=== PATIENT | female | born 1975 | race American Indian/Alaskan Native ===

== ENCOUNTER 2016-12-28 09:18 | Inpatient (IN) | payer OTHER ==
[2016-12-28] MEDS ORDERED: FIORICET PO ONE (11:02)
--- NOTE | 2016-12-28 11:07 | Emergency Department Report ---
HPI - General Chief Complaint: Dizziness Time Seen by Provider: 12/28/16 10:43 - HPI HPI: Room 5 The patient is a 41-year-old female presenting with a chief complaint of syncope. The patient states this morning she was standing working at the [employer] when she began to feel hot. The patient states she drank some water but it did not improve. Patient was still at the [employer] when she states she felt "overheated" and had a headache. The patient states she attempted to walk to the "cooler" to see if it would help her feel better she began "seeing dark" and had a syncopal episode. The patient awakened on the floor feeling lightheaded. EMS was called and eventually transported the patient to the ED. Asked how she is feeling now the patient replies she feels lightheaded. Patient denied having chest pain, nausea/vomiting or abdominal pain. Patient missed to slight shortness of breath and a headache. Location: [See above] Duration: [See above] Quality: Syncope Severity: Moderate Modifying factors: [see above] Context: [see above] Mode of transportation: [not driving] ED Past Medical Hx - Past Medical History Hx Headaches / Migraines: Yes Hx Asthma: Yes Additional medical history: Anemia (FE) - Surgical History Past Surgical History?: No - Family History Family history: no significant - Social History Smoking Status: Never Smoker Substance Use Type: None (denies illicit drug use), Alcohol (rarely) - Medications Home Medications: Home Medications Medication Instructions Recorded Confirmed Last Taken Type ALBUTEROL Inhaler [Proair] 2 puff IH QID PRN 12/28/16 12/28/16 12/28/16 History Ferrous Sulfate [Iron] 325 mg PO DAILY 12/28/16 12/28/16 12/28/16 History Triamter/Hctz 75-50 mg [Maxzide 1 tab PO QDAY 12/28/16 12/28/16 12/28/16 History 75-50 mg] ED Review of Systems ROS: Stated complaint: SYNCOPE AT WORK Other details as noted in HPI Comment: All other systems reviewed and negative Constitutional: other ("overheated") Eyes: denies: eye pain, eye discharge, vision change ENT: denies: ear pain, throat pain Respiratory: shortness of breath. denies: cough, wheezing Cardiovascular: denies: chest pain, palpitations Endocrine: no symptoms reported Gastrointestinal: denies: abdominal pain, nausea, diarrhea Genitourinary: denies: urgency, dysuria, discharge Musculoskeletal: denies: back pain, joint swelling, arthralgia Skin: denies: rash, lesions Neurological: headache, other (syncope) Psychiatric: denies: anxiety, depression Hematological/Lymphatic: denies: easy bleeding, easy bruising Physical Exam - Physical Exam Vital Signs: Vital Signs 12/28/16 12/28/16 12/28/16 09:35 09:50 10:00 Temperature 97.9 F Pulse Rate 63 62 Respiratory 21 Rate Blood Pressure 169/80 160/79 O2 Sat by Pulse 100 100 100 Oximetry 12/28/16 10:24 Temperature Pulse Rate Respiratory 18 Rate Blood Pressure O2 Sat by Pulse 100 Oximetry Physical Exam: GENERAL: The patient is well-developed well-nourished female lying on stretcher not appearing to be in acute distress. [] HEENT: Normocephalic. Atraumatic. Extraocular motions are intact. Patient has moist mucous membranes. NECK: Supple. Trachea midline CHEST/LUNGS: Clear to auscultation. There is no respiratory distress noted. HEART/CARDIOVASCULAR: Regular. There is no tachycardia. There is no gallop rub or murmur. ABDOMEN: Abdomen is soft, nontender. Patient has normal bowel sounds. There is no abdominal distention. SKIN: There is no rash. There is no edema. There is no diaphoresis. NEURO: The patient is awake, alert, and oriented. The patient is cooperative. The patient has no focal neurologic deficits. The patient has normal speech. Cranial nerves II through XII grossly intact, no drift. Moves all extremities well MUSCULOSKELETAL:There is no evidence of acute injury. ED Course Vital Signs 12/28/16 12/28/16 12/28/16 09:35 09:50 10:00 Temperature 97.9 F Pulse Rate 63 62 Respiratory 21 Rate Blood Pressure 169/80 160/79 O2 Sat by Pulse 100 100 100 Oximetry 12/28/16 10:24 Temperature Pulse Rate Respiratory 18 Rate Blood Pressure O2 Sat by Pulse 100 Oximetry ED Medical Decision Making - Lab Data Result diagrams: 12/28/16 11:47 12/28/16 11:47 Laboratory Tests 12/28/16 12/28/16 12/28/16 11:23 11:23 11:23 WBC RBC Hgb Hct MCV MCH MCHC RDW Plt Count Lymph % (Auto) [place] % (Auto) Eos % (Auto) Baso % (Auto) Lymph # [place] # Eos # Baso # Seg Neutrophils % Seg Neutrophils # PT INR APTT D-Dimer Sodium Potassium Chloride Carbon Dioxide Anion Gap BUN Creatinine Estimated GFR BUN/Creatinine Ratio Glucose Calcium Total Bilirubin AST ALT Alkaline Phosphatase Total Creatine Kinase CK-MB (CK-2) CK-MB (CK-2) Rel Index Troponin T NT-Pro-B Natriuret Pep Total Protein Albumin Albumin/Globulin Ratio Urine Color Straw Urine Turbidity Clear Urine pH 7.0 Ur Specific [place] 1.006 Urine Protein 30 mg/dl Urine Glucose (UA) Neg Urine Ketones Neg Urine Blood Neg Urine Nitrite Neg Urine Bilirubin Neg Urine Urobilinogen < 2.0 Ur Leukocyte Esterase Neg Urine WBC (Auto) 1.0 Urine RBC (Auto) < 1.0 U Epithel Cells (Auto) 1.0 Urine HCG, Qual Negative Urine Opiates Screen Presumptive negative Urine Methadone Screen Presumptive negative Ur Barbiturates Screen Presumptive negative Ur Phencyclidine Scrn Presumptive negative Ur Amphetamines Screen Presumptive negative U Benzodiazepines Scrn Presumptive negative Urine Cocaine Screen Presumptive negative U Marijuana (THC) Screen Presumptive negative Drugs of Abuse Note Disclamer 12/28/16 12/28/16 12/28/16 11:47 11:47 11:47 WBC 6.4 RBC 4.77 Hgb 8.9 L Hct 28.7 L MCV 60 L MCH 19 L MCHC 31 RDW 23.4 H Plt Count 87 L Lymph % (Auto) 11.8 L [place] % (Auto) 6.7 Eos % (Auto) 1.2 Baso % (Auto) 0.8 Lymph # 0.8 L [place] # 0.4 Eos # 0.1 Baso # 0.1 Seg Neutrophils % 79.5 H Seg Neutrophils # 5.1 PT 12.5 INR 0.89 APTT 20.1 L D-Dimer 193.45 Sodium 135 L Potassium 4.8 Chloride 100.4 Carbon Dioxide 20 L Anion Gap 19 BUN 27 H Creatinine 1.7 H Estimated GFR 40 BUN/Creatinine Ratio 16 Glucose 87 Calcium 9.1 Total Bilirubin 0.20 AST 30 ALT 17 Alkaline Phosphatase 125 Total Creatine Kinase 597 H CK-MB (CK-2) 2.8 CK-MB (CK-2) Rel Index 0.4 Troponin T < 0.010 NT-Pro-B Natriuret Pep 669.2 H Total Protein 7.5 Albumin 3.5 L Albumin/Globulin Ratio 0.9 Urine Color Urine Turbidity Urine pH Ur Specific [place] Urine Protein Urine Glucose (UA) Urine Ketones Urine Blood Urine Nitrite Urine Bilirubin Urine Urobilinogen Ur Leukocyte Esterase Urine WBC (Auto) Urine RBC (Auto) U Epithel Cells (Auto) Urine HCG, Qual Urine Opiates Screen Urine Methadone Screen Ur Barbiturates Screen Ur Phencyclidine Scrn Ur Amphetamines Screen U Benzodiazepines Scrn Urine Cocaine Screen U Marijuana (THC) Screen Drugs of Abuse Note - EKG Data -: EKG Interpreted by Me EKG shows normal: sinus rhythm Rate: normal - EKG Data When compared to previous EKG there are: changes noted Interpretation: nonspecific ST-T wave ginette (new T-wave inversions in leads V5, V6 , 2 when compared to previous EKG dated 08/19/2011) - Radiology Data Radiology results: report reviewed (CT Head), image reviewed (CT head, chest x- ray) interpreted by me: Chest x-ray-no focal infiltrates, no pneumothorax CT head (regular radiologist)-no acute intracranial CT abnormality. - Differential Diagnosis syncope, ICH, ACS, PE Critical care attestation.: If time is entered above; I have spent that time in minutes in the direct care of this critically ill patient, excluding procedure time. ED Disposition Clinical Impression: Syncope, T wave inversion in EKG Disposition: -09 OP ADMIT IP TO THIS HOSP Is pt being admited?: Yes Does the pt Need Aspirin: Yes Condition: Fair Instructions: Syncope (ED) Referrals: PRIMARY CARE, [Primary Care Provider] - 3-5 Days Forms: Accompanied Note Time of Disposition: 13:20 (hospitalist paged)
--- NOTE | 2016-12-28 11:44 | Cat Scan Report ---
CT HEAD WITHOUT CONTRAST INDICATION: Syncope. COMPARISON: None similar. FINDINGS: Noncontrast head CT demonstrates normal ventricles and sulci without acute or recent infarct, hemorrhage, mass effect or midline shift. No abnormal extra-axial fluid collections. Mild, benign bilateral basal ganglia calcifications. Posterior fossa structures and basilar cisterns appear within normal limits. Symmetric eye globes. Mild right maxillary sinus mucosal thickening. Clear remainder imaged paranasal sinuses and mastoid air cells. Intact calvarium. Normal overlying scalp soft tissues. Partially empty sella. Mild atherosclerotic ICA calcifications. CONCLUSION: No acute intracranial CT abnormality with few other findings, as described. Thank you for the opportunity to participate in this patient's care.
[2016-12-28 12:11] LABS: Basophils % (Auto) 0.8 % (0.0-1.8); Eosinophils % (Auto) 1.2 % (0.0-4.3); Hematocrit 28.7 % (30.3-42.9); Hemoglobin 8.9 gm/dl (10.1-14.3); Mean Corpuscular HGB Conc 31 % (30-34); Red Blood Count 4.77 M/mm3 (3.65-5.03); White Blood Count 6.4 K/mm3 (4.5-11.0)
[2016-12-28 12:12] LABS: Mean Corpuscular Hemoglobin 19 pg (28-32); Mean Corpuscular Volume 60 fl (79-97); Red Cell Distribution Width 23.4 % (13.2-15.2)
[2016-12-28 12:24] LABS: INR 0.89 (0.87-1.13); Partial Thromboplastin Time 20.1 Sec. (24.2-36.6)
[2016-12-28 12:26] LABS: Urine Drugs of Abuse Note Disclamer
[2016-12-28 12:49] LABS: Bilirubin,Urine NEG (Negative); Blood,Urine NEG (Negative); Ketones,Urine NEG (Negative); Leukocyte Esterase,Urine NEG (Negative); Nitrite,Urine NEG (Negative); RBC,Urine < 1.0 /HPF (0.0-6.0); Urobilinogen,Urine < 2.0 mg/dL (<2.0)
[2016-12-28 13:01] LABS: Platelet Count 87 K/mm3 (140-440)
[2016-12-28 13:17] LABS: Creatine Kinase MB 2.8 ng/mL (0.0-4.0)
[2016-12-28 13:18] LABS: Alanine Aminotransferase 17 units/L (7-56); Albumin 3.5 g/dL (3.9-5); Albumin/Globulin Ratio 0.9 %; Alkaline Phosphatase 125 units/L (35-129); Anion Gap 19 mmol/L; BUN/Creatinine Ratio 16; Blood Urea Nitrogen 27 mg/dL (7-17); Calcium 9.1 mg/dL (8.4-10.2); Carbon Dioxide 20 mmol/L (22-30); Chloride 100.4 mmol/L (98-107); Creatine Kinase 597 units/L (30-135); Glucose 87 mg/dL (65-100); Potassium 4.8 mmol/L (3.6-5.0); Sodium 135 mmol/L (137-145); Total Protein 7.5 g/dL (6.3-8.2)
--- NOTE | 2016-12-28 13:59 | XRay Report ---
AP CHEST: HISTORY: Shortness of breath, syncope AP view of the chest demonstrates a normal mediastinal and cardiac contour with clear lungs and normal bony and soft tissue structures. IMPRESSION: Unremarkable AP chest.
[2016-12-28] MEDS ORDERED: ASPIRIN PO ONE (16:48)
--- NOTE | 2016-12-28 17:14 | History and Physical Report ---
History of Present Illness Date of examination: 12/28/16 Date of admission: 12/28/16 13:22 Chief complaint: CC: Passed out at work this afternoon. 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 No fevet or chills. Past History Past Medical History: anemia, hypertension, other (Asthma) Past Surgical History: No surgical history Social history: no significant social history, lives with family, full code Family history: no significant family history Medications and Allergies Allergies Allergy/AdvReac Type Severity Reaction Status Date / Time No Known Allergies Allergy Verified 12/28/16 09:35 Home Medications Medication Instructions Recorded Confirmed Last Taken Type ALBUTEROL Inhaler [Proair] 2 puff IH QID PRN 12/28/16 12/28/16 12/28/16 History Ferrous Sulfate [Iron] 325 mg PO DAILY 12/28/16 12/28/16 12/28/16 History Metoprolol [Lopressor] 100 mg PO DAILY 12/28/16 12/28/16 12/28/16 History Triamter/Hctz 75-50 mg [Maxzide 1 tab PO QDAY 12/28/16 12/28/16 12/28/16 History 75-50 mg] Review of Systems All systems: negative Constitutional: no weight loss, no weight gain, no fever, no chills, no sweats, no night sweats Ears, nose, mouth and throat: no hoarseness, no sore throat, no swelling in mouth, no swelling in throat Breasts: deferred Cardiovascular: syncope, lightheadedness, no chest pain, no orthopnea, no palpitations, no rapid/irregular heart beat, no edema, no shortness of breath, no dyspnea on exertion, no paroxysmal nocturnal dyspnea Respiratory: no cough, no cough with sputum, no excessive sputum, no hemoptysis , no shortness of breath, no dyspnea on exertion Gastrointestinal: no abdominal pain, no nausea, no vomiting, no diarrhea, no constipation, no change in bowel habits, no hematemesis, no coffee ground emesis Genitourinary Female: no dysmenorrhea, no pelvic pain, no flank pain, no menorrhagia, no dysuria, no urinary frequency, no urgency, no stress incontinence Menstruation: currently menstrual Rectal: no pain Musculoskeletal: no neck stiffness, no neck pain, no shooting arm pain, no arm numbness/tingling, no low back pain, no shooting leg pain, no leg numbness/ tingling, no redness of joints Integumentary: no rash, no pruritis, no redness, no sores, no wounds, no jaundice, no boils, no blisters Neurological: syncope, no head injury, no transient paralysis, no paralysis, no weakness, no parathesias, no numbness, no tingling, no seizures Psychiatric: no anxiety, no memory loss, no change in sleep habits, no sleep disturbances, no insomnia, no hypersomnia, no change in appetite, no change in libido Endocrine: no cold intolerance, no heat intolerance, no polyphagia, no excessive thirst, no polydipsia, no polyuria, no nocturia, no excessive sweating , no flushing, no weight change Hematologic/Lymphatic: no easy bruising, no easy bleeding Allergic/Immunologic: no urticaria, no allergic rhinitis, no wheezing Exam - Constitutional Vitals: Temp Pulse Resp BP Pulse Ox 98.6 F 68 16 136/74 98 12/28/16 16:23 12/28/16 16:23 12/28/16 16:23 12/28/16 16:23 12/28/16 16:23 General appearance: Present: no acute distress, well-nourished - EENT Eyes: Present: PERRL ENT: hearing intact, clear oral mucosa - Neck Neck: Present: supple, normal ROM - Respiratory Respiratory effort: normal Respiratory: bilateral: CTA - Cardiovascular Heart rate: 80 Rhythm: regular Heart Sounds: Present: S1 & S2. Absent: rub, click - Extremities Extremities: no ischemia, pulses intact, pulses symmetrical, No edema Peripheral Pulses: within normal limits - Abdominal General gastrointestinal: Present: soft, non-tender, non-distended, normal bowel sounds Female genitourinary: Present: normal - Integumentary Integumentary: Present: clear, warm, dry - Musculoskeletal Musculoskeletal: gait normal, strength equal bilaterally - Psychiatric Psychiatric: appropriate mood/affect, intact judgment & insight - Neurologic Neurologic: CNII-XII intact, moves all extremities - Allied Health Allied health notes reviewed: nursing, case management Results - Labs CBC & Chem 7: 12/29/16 05:04 12/29/16 05:04 Labs: Laboratory Last Values WBC 6.4 K/mm3 (4.5-11.0) 12/28/16 11:47 RBC 4.77 M/mm3 (3.65-5.03) 12/28/16 11:47 Hgb 8.9 gm/dl (10.1-14.3) L 12/28/16 11:47 Hct 28.7 % (30.3-42.9) L 12/28/16 11:47 MCV 60 fl (79-97) L 12/28/16 11:47 MCH 19 pg (28-32) L 12/28/16 11:47 MCHC 31 % (30-34) 12/28/16 11:47 RDW 23.4 % (13.2-15.2) H 12/28/16 11:47 Plt Count 87 K/mm3 (140-440) L 12/28/16 11:47 Lymph % (Auto) 11.8 % (13.4-35.0) L 12/28/16 11:47 [place] % (Auto) 6.7 % (0.0-7.3) 12/28/16 11:47 Eos % (Auto) 1.2 % (0.0-4.3) 12/28/16 11:47 Baso % (Auto) 0.8 % (0.0-1.8) 12/28/16 11:47 Lymph # 0.8 K/mm3 (1.2-5.4) L 12/28/16 11:47 [place] # 0.4 K/mm3 (0.0-0.8) 12/28/16 11:47 Eos # 0.1 K/mm3 (0.0-0.4) 12/28/16 11:47 Baso # 0.1 K/mm3 (0.0-0.1) 12/28/16 11:47 Seg Neutrophils % 79.5 % (40.0-70.0) H 12/28/16 11:47 Seg Neutrophils # 5.1 K/mm3 (1.8-7.7) 12/28/16 11:47 PT 12.5 Sec. (12.2-14.9) 12/28/16 11:47 INR 0.89 (0.87-1.13) 12/28/16 11:47 APTT 20.1 Sec. (24.2-36.6) L 12/28/16 11:47 D-Dimer 193.45 ng/mlDDU (0-234) 12/28/16 11:47 Sodium 135 mmol/L (137-145) L 12/28/16 11:47 Potassium 4.8 mmol/L (3.6-5.0) 12/28/16 11:47 Chloride 100.4 mmol/L (98-107) 12/28/16 11:47 Carbon Dioxide 20 mmol/L (22-30) L 12/28/16 11:47 Anion Gap 19 mmol/L 12/28/16 11:47 BUN 27 mg/dL (7-17) H 12/28/16 11:47 Creatinine 1.7 mg/dL (0.7-1.2) H 12/28/16 11:47 Estimated GFR 40 ml/min 12/28/16 11:47 BUN/Creatinine Ratio 16 % 12/28/16 11:47 Glucose 87 mg/dL (65-100) 12/28/16 11:47 Calcium 9.1 mg/dL (8.4-10.2) 12/28/16 11:47 Total Bilirubin 0.20 mg/dL (0.1-1.2) 12/28/16 11:47 AST 30 units/L (5-40) 12/28/16 11:47 ALT 17 units/L (7-56) 12/28/16 11:47 Alkaline Phosphatase 125 units/L (35-129) 12/28/16 11:47 Total Creatine Kinase 597 units/L (30-135) H 12/28/16 11:47 CK-MB (CK-2) 2.8 ng/mL (0.0-4.0) 12/28/16 11:47 CK-MB (CK-2) Rel Index 0.4 (0-4) 12/28/16 11:47 Troponin T < 0.010 ng/mL (0.00-0.029) 12/28/16 11:47 NT-Pro-B Natriuret Pep 669.2 pg/mL (0-450) H 12/28/16 11:47 Total Protein 7.5 g/dL (6.3-8.2) 12/28/16 11:47 Albumin 3.5 g/dL (3.9-5) L 12/28/16 11:47 Albumin/Globulin Ratio 0.9 % 12/28/16 11:47 Urine Color Straw (Yellow) 12/28/16 11:23 Urine Turbidity Clear (Clear) 12/28/16 11:23 Urine pH 7.0 (5.0-7.0) 12/28/16 11:23 Ur Specific [place] 1.006 (1.003-1.030) 12/28/16 11:23 Urine Protein 30 mg/dl mg/dL (Negative) 12/28/16 11:23 Urine Glucose (UA) Neg mg/dL (Negative) 12/28/16 11:23 Urine Ketones Neg mg/dL (Negative) 12/28/16 11:23 Urine Blood Neg (Negative) 12/28/16 11:23 Urine Nitrite Neg (Negative) 12/28/16 11:23 Urine Bilirubin Neg (Negative) 12/28/16 11:23 Urine Urobilinogen < 2.0 mg/dL (<2.0) 12/28/16 11:23 Ur Leukocyte Esterase Neg (Negative) 12/28/16 11:23 Urine WBC (Auto) 1.0 /HPF (0.0-6.0) 12/28/16 11:23 Urine RBC (Auto) < 1.0 /HPF (0.0-6.0) 12/28/16 11:23 U Epithel Cells (Auto) 1.0 /HPF (0-13.0) 12/28/16 11:23 Urine HCG, Qual Negative (Negative) 12/28/16 11:23 Urine Opiates Screen Presumptive negative 12/28/16 11:23 Urine Methadone Screen Presumptive negative 12/28/16 11:23 Ur Barbiturates Screen Presumptive negative 12/28/16 11:23 Ur Phencyclidine Scrn Presumptive negative 12/28/16 11:23 Ur Amphetamines Screen Presumptive negative 12/28/16 11:23 U Benzodiazepines Scrn Presumptive negative 12/28/16 11:23 Urine Cocaine Screen Presumptive negative 12/28/16 11:23 U Marijuana (THC) Screen Presumptive negative 12/28/16 11:23 Drugs of Abuse Note Disclamer 12/28/16 11:23 Short CBC 12/28/16 12/29/16 Range/Units 11:47 05:04 WBC 6.4 6.3 (4.5-11.0) K/mm3 Hgb 8.9 L 8.3 L (10.1-14.3) gm/dl Hct 28.7 L 28.6 L (30.3-42.9) % Plt Count 87 L 128 L (140-440) K/mm3 BMP 12/28/16 12/29/16 11:47 05:04 Sodium 135 L 139 Potassium 4.8 4.2 Chloride 100.4 101.2 Carbon Dioxide 20 L 21 L BUN 27 H 28 H Creatinine 1.7 H 1.7 H Glucose 87 91 Calcium 9.1 8.9 Cardiac Enzymes 12/28/16 Range/Units 11:47 Total Creatine Kinase 597 H (30-135) units/L CK-MB (CK-2) 2.8 (0.0-4.0) ng/mL Troponin T < 0.010 (0.00-0.029) ng/mL Liver Function 12/28/16 12/29/16 Range/Units 11:47 05:04 Total Bilirubin 0.20 < 0.20 (0.1-1.2) mg/dL AST 30 20 (5-40) units/L ALT 17 17 (7-56) units/L Alkaline Phosphatase 125 116 (35-129) units/L Albumin 3.5 L 3.6 L (3.9-5) g/dL Urine 12/28/16 Range/Units 11:23 Urine Color Straw (Yellow) Urine pH 7.0 (5.0-7.0) Ur Specific [place] 1.006 (1.003-1.030) Urine Protein 30 mg/dl (Negative) mg/dL Urine Glucose (UA) Neg (Negative) mg/dL - Imaging and Cardiology EKG: report reviewed (NSR 63/minNo acute st t wave changes) Assessment and Plan Advance Directives: Yes (Full code) VTE prophylaxis?: Chemical Plan of care discussed with patient/family: Yes - Patient Problems (1) Syncope and collapse Current Visit: Yes Status: Acute Plan to address problem: Syncope w/u in the form of CDS /Echo/Lexiscan (2) MEAGAN (acute kidney injury) Current Visit: Yes Status: Acute Plan to address problem: IV fluids for now and recheck Bmp. (3) HTN (hypertension) Current Visit: Yes Status: Chronic Qualifiers: Hypertension type: essential hypertension Qualified Code(s): I10 - Essential (primary) hypertension Plan to address problem: Cont antihypertensives (4) Asthma Current Visit: Yes Status: Inactive Qualifiers: Asthma severity: A Asthma persistence: A Asthma complication type: unspecified Plan to address problem: Cont MDI prn (5) Anemia Current Visit: Yes Status: Chronic Qualifiers: Anemia type: A Iron deficiency anemia type: I Vitamin B12 deficiency anemia type: V Folate deficiency anemia type: F Bone marrow failure anemia type: B Hemolytic anemia type: H Other causes of anemia: O Chronic kidney disease stage: C Plan to address problem: Anemia w/u No obvious GI bleed ??Menorrhagia (6) DVT prophylaxis Current Visit: Yes Status: Acute Plan to address problem: On Lovenox
[2016-12-28] MEDS ORDERED: MILK OF MAGNESIA PO PRN (17:18)
[2016-12-28] MEDS ORDERED: PROAIR IH PRN (17:18)
[2016-12-28] MEDS ORDERED: PERCOCET 5/325 PO PRN (17:18)
[2016-12-28] MEDS ORDERED: TYLENOL PO PRN (17:18)
[2016-12-28] MEDS ORDERED: DULCOLAX PR PRN (17:18)
[2016-12-28] MEDS ORDERED: PROVENTIL IH PRN (17:24)
[2016-12-28] MEDS ORDERED: HCTZ PO SCH (17:30)
[2016-12-28] MEDS ORDERED: TRIAMTER PO SCH (17:30)
[2016-12-28] MEDS ORDERED: APRESOLINE IV PRN (17:36)
[2016-12-28] MEDS ORDERED: D5NS 1,000 ML IV SCH (18:00)
[2016-12-28] MEDS: APRESOLINE IV PRN ×2 (18:09→23:05)
[2016-12-28] MEDS: MAXZIDE-25 PO SCH (18:54)
[2016-12-28] MEDS: FEOSOL PO SCH (18:54)
[2016-12-28] MEDS: ZOFRAN IV PRN (23:05)
[2016-12-28] MEDS: MORPHINE IV PRN ×2 (23:06→23:38)
[2016-12-28] MEDS: PEPCID PO SCH (23:06)
[2016-12-29 05:57] LABS: Basophils % (Auto) 0.7 % (0.0-1.8); Eosinophils % (Auto) 2.5 % (0.0-4.3); Mean Corpuscular HGB Conc 29 % (30-34); Red Blood Count 4.69 M/mm3 (3.65-5.03); White Blood Count 6.3 K/mm3 (4.5-11.0)
[2016-12-29 05:58] LABS: Alanine Aminotransferase 17 units/L (7-56); Albumin 3.6 g/dL (3.9-5); Alkaline Phosphatase 116 units/L (35-129); Anion Gap 21 mmol/L; BUN/Creatinine Ratio 16; Bilirubin,Total < 0.20 mg/dL (0.1-1.2); Blood Urea Nitrogen 28 mg/dL (7-17); Calcium 8.9 mg/dL (8.4-10.2); Carbon Dioxide 21 mmol/L (22-30); Chloride 101.2 mmol/L (98-107); Glucose 91 mg/dL (65-100); Potassium 4.2 mmol/L (3.6-5.0); Sodium 139 mmol/L (137-145); Total Protein 7.3 g/dL (6.3-8.2)
[2016-12-29 06:06] LABS: Hematocrit 28.6 % (30.3-42.9); Hemoglobin 8.3 gm/dl (10.1-14.3); Mean Corpuscular Hemoglobin 18 pg (28-32); Mean Corpuscular Volume 61 fl (79-97); Platelet Count 128 K/mm3 (140-440); Red Cell Distribution Width 22.9 % (13.2-15.2)
[2016-12-29] MEDS ORDERED: NACL 0.9% 1000 ML 1,000 ML IV SCH (08:00)
[2016-12-29 08:28] LABS: Creatine Kinase 289 units/L (30-135)
[2016-12-29] MEDS: LOPRESSOR PO SCH (10:56)
[2016-12-29] MEDS: FEOSOL PO SCH (10:56)
[2016-12-29] MEDS: PEPCID PO SCH ×2 (10:56→21:45)
[2016-12-29] MEDS: MAXZIDE-25 PO SCH (10:57)
[2016-12-29 15:01] LABS: Creatine Kinase MB 1.9 ng/mL (0.0-4.0)
[2016-12-29 15:03] LABS: Creatine Kinase 244 units/L (30-135)
--- NOTE | 2016-12-29 16:01 | Progress Note ---
Assessment and Plan - Patient Problems (1) Syncope and collapse Current Visit: Yes Status: Acute Plan to address problem: Syncope w/u in the form of CDS /Echo/Lexiscan CDS Rt 50 to 79 stenosis Lt <50 percent Echo result pending Lexiscan on 12/30 (2) MEAGAN (acute kidney injury) Current Visit: Yes Status: Acute Plan to address problem: IV fluids for now and recheck Bmp. Cr at 1.7 (3) HTN (hypertension) Current Visit: Yes Status: Chronic Qualifiers: Hypertension type: essential hypertension Qualified Code(s): I10 - Essential (primary) hypertension Plan to address problem: Cont antihypertensives (4) Asthma Current Visit: Yes Status: Inactive Qualifiers: Asthma severity: A Asthma persistence: A Asthma complication type: unspecified Plan to address problem: Cont MDI prn (5) Anemia Current Visit: Yes Status: Chronic Qualifiers: Anemia type: A Iron deficiency anemia type: I Vitamin B12 deficiency anemia type: V Folate deficiency anemia type: F Bone marrow failure anemia type: B Hemolytic anemia type: H Other causes of anemia: O Chronic kidney disease stage: C Plan to address problem: Anemia w/u No obvious GI bleed ??Menorrhagia (6) DVT prophylaxis Current Visit: Yes Status: Acute Plan to address problem: On Lovenox Subjective Date of service: 12/29/16 Principal diagnosis: Syncope and Collapse Interval history: Feeling better.Had CDS and Echo today. Objective - Constitutional Vitals: Vital Signs - 12hr 12/29/16 12/29/16 12/29/16 08:40 08:41 10:00 Temperature 98.2 F 98.2 F Pulse Rate 72 71 89 Respiratory 18 18 Rate Blood Pressure 161/84 O2 Sat by Pulse 99 98 Oximetry General appearance: Present: no acute distress, well-nourished - EENT Eyes: PERRL, EOM intact ENT: hearing intact, clear oral mucosa Ears: bilateral: normal - Neck Neck: supple, normal ROM - Respiratory Respiratory effort: normal Respiratory: bilateral: CTA - Breasts Breasts: normal - Cardiovascular Rhythm: regular Heart Sounds: Present: S1 & S2. Absent: gallop, rub Extremities: pulses intact, No edema, normal color, Full ROM - Gastrointestinal General gastrointestinal: Present: soft, non-tender, non-distended, normal bowel sounds - Genitourinary Female genitourinary: normal - Integumentary Integumentary: clear, warm, dry - Musculoskeletal Musculoskeletal: 1, strength equal bilaterally - Neurologic Neurologic: moves all extremities - Psychiatric Psychiatric: memory intact, appropriate mood/affect, intact judgment & insight - Labs CBC & Chem 7: 12/29/16 05:04 12/29/16 05:04 Labs: Abnormal lab results 12/29/16 12/29/16 12/29/16 Range/Units 05:04 05:04 07:45 Hgb 8.3 L (10.1-14.3) gm/dl Hct 28.6 L (30.3-42.9) % MCV 61 L (79-97) fl MCH 18 L (28-32) pg MCHC 29 L (30-34) % RDW 22.9 H (13.2-15.2) % Plt Count 128 L (140-440) K/mm3 [place] % (Auto) 8.0 H (0.0-7.3) % Carbon Dioxide 21 L (22-30) mmol/L BUN 28 H (7-17) mg/dL Creatinine 1.7 H (0.7-1.2) mg/dL Total Creatine Kinase 289 H (30-135) units/L Albumin 3.6 L (3.9-5) g/dL 12/29/16 Range/Units 13:30 Hgb (10.1-14.3) gm/dl Hct (30.3-42.9) % MCV (79-97) fl MCH (28-32) pg MCHC (30-34) % RDW (13.2-15.2) % Plt Count (140-440) K/mm3 [place] % (Auto) (0.0-7.3) % Carbon Dioxide (22-30) mmol/L BUN (7-17) mg/dL Creatinine (0.7-1.2) mg/dL Total Creatine Kinase 244 H (30-135) units/L Albumin (3.9-5) g/dL
[2016-12-29 18:36] LABS: Creatine Kinase MB 1.8 ng/mL (0.0-4.0)
[2016-12-29 18:37] LABS: Creatine Kinase 212 units/L (30-135)
[2016-12-29] MEDS: APRESOLINE IV PRN (21:45)
[2016-12-29] MEDS: ZOFRAN IV PRN (21:45)
[2016-12-29] MEDS: MORPHINE IV PRN (21:48)
[2016-12-29] MEDS ORDERED: LOVENOX SUB-Q SCH (22:00)
[2016-12-30 09:02] LABS: Calcium 6.2 mg/dL (8.4-10.2); Chloride 112.6 mmol/L (98-107); Potassium 3.1 mmol/L (3.6-5.0)
[2016-12-30] MEDS ORDERED: LEXISCAN IV ONE ×2 (09:57→10:02)
[2016-12-30] MEDS ORDERED: APRESOLINE ONE (10:30)
[2016-12-30] MEDS: APRESOLINE IV PRN (10:31)
--- NOTE | 2016-12-30 11:05 | Treadmill Report ---
LEXISCAN STRESS TEST REPORT DATE OF STUDY: 12/30/2016 REASON FOR STUDY: Chest pain. STRESS TEST PROTOCOL: The patient received 0.4 mg of Lexiscan intravenously over 10 seconds. Technetium-99m tetrofosmin was subsequently injected. Baseline EKG, normal sinus rhythm. T-wave abnormality. Consider inferior ischemia. Lexiscan EKG, no significant change from baseline. No chest pain. No arrhythmias. IMPRESSION: Nondiagnostic due to baseline electrocardiogram abnormalities. Nuclear imaging report to follow. [facility]# [id number] MANFRED/NTS
[2016-12-30] MEDS: FEOSOL PO SCH (11:30)
[2016-12-30] MEDS: PEPCID PO SCH (11:30)
[2016-12-30] MEDS: LOPRESSOR PO SCH (11:30)
[2016-12-30] MEDS: MAXZIDE-25 PO SCH (11:30)
[2016-12-30] MEDS ORDERED: K-DUR PO ONE ×2 (11:31→13:40)
[2016-12-30 13:34] VITALS: BP 157/85
--- NOTE | 2016-12-30 14:12 | Discharge Summary ---
Providers - Providers Date of Admission: 12/28/16 13:22 Date of discharge: 12/30/16 Attending physician: XUAN BERNAL MD 12/30/16 08:19 Consult to Physician [CONS] Routine Consulting Provider: KAUR PEDROZA Reason For Exam: syncope, Rt carotid 50-79% stenosis Place consult to:: vascular surgery Notified:: Nirmal MOTA Phone number called:: Was contact made?: Yes If yes, spoke with:: Jacqueline-Office Time called:: 09:11 Primary care physician: [facility] Hospitalization Reason for admission: syncope, Condition: Stable Disposition: DC- TO HOME OR SELFCARE Time spent for discharge: 31 minutes - Discharge Diagnoses (1) Abnormal nuclear cardiac imaging test Status: Acute (2) MEAGAN (acute kidney injury) Status: Acute (3) Syncope and collapse Status: Acute (4) Anemia Status: Chronic Qualifiers: Anemia type: A Iron deficiency anemia type: I Vitamin B12 deficiency anemia type: V Folate deficiency anemia type: F Bone marrow failure anemia type: B Hemolytic anemia type: H Other causes of anemia: O Chronic kidney disease stage: C (5) HTN (hypertension) Status: Chronic Qualifiers: Hypertension type: essential hypertension Qualified Code(s): I10 - Essential (primary) hypertension Core Measure Documentation - Palliative Care Palliative Care/ Comfort Measures: Not Applicable - Core Measures Any of the following diagnoses?: acute MS - Acute MS Discharge Requirements Aspirin at discharge: Yes BRODY/ARB for LVSD if EF <40%: No Reason for no BRODY/ARB: Renal impairment Statin for LDL = or >100 mg/dl on DC: Yes Exam - Physical Exam Narrative exam: Not in cardiopulmonary distress. The patient is obese. Vital signs as documented. Head exam is unremarkable. No scleral icterus . Neck is without jugular venous distension, thyromegaly, or carotid bruits. Lungs are clear to auscultation. Cardiac exam reveals regular rate and Rhythm. First and second heart sounds normal. No murmurs, rubs or gallops. Abdominal exam reveals normal bowel sounds, no masses, no organomegaly and no aortic enlargement. Extremities are nonedematous and both femoral and pedal pulses are normal. [employer]: Alert and oriented 3. No focal weakness. - Constitutional Vitals: Temp Pulse Resp BP Pulse Ox 98.0 F 71 20 157/85 100 12/30/16 13:03 12/30/16 13:03 12/30/16 13:03 12/30/16 13:03 12/30/16 13:03 Plan Activity: no restrictions Weight Bearing Status: Full Weight Bearing Diet: low cholesterol, low salt Follow up with: PRIMARY CARE,MD [Primary Care Provider] - 3-5 Days [facility] [Provider Group] - 7 Days (Patient can see Dr Reich) Forms: Accompanied Note Prescriptions: Simvastatin [Zocor TAB] 40 mg PO QHS #30 tablet ALBUTEROL Inhaler [ProAir HFA Inhaler] 2 puff IH QID PRN #1 can PRN Reason: Shortness Of Breath amLODIPine [Norvasc] 10 mg PO DAILY #30 tab Ferrous Sulfate [Iron] 325 mg PO DAILY #30 tablet hydrALAZINE [Apresoline TAB] 100 mg PO TID #90 tab Metoprolol [Lopressor TAB] 100 mg PO DAILY #30 tablet
[2016-12-30 15:39] LABS: Calcium 8.9 mg/dL (8.4-10.2); Chloride 99.8 mmol/L (98-107); Potassium 3.9 mmol/L (3.6-5.0)
--- NOTE | 2016-12-30 15:51 | Consultation ---
History of Present Illness - Reason for Consult Consult date: 12/30/16 Requesting physician: XUAN BERNAL - History of Present Illness This patient is a 41-year-old -[place] female was admitted via the emergency room on 12/28/2016 due to a syncopal episode. She apparently was at work when she became lightheaded, and subsequently "passed out". She has since been admitted to the hospital, and a workup initiated. A cardiology consult was placed. A CT scan of the head showed no acute intracranial CT abnormalities. The report did suggest mild atherosclerotic calcifications in her internal carotid artery. A carotid duplex was performed which revealed 50- 79% stenosis on the right (based on velocities) with less than 50% stenosis on the left. A vascular surgery consult was requested to further evaluate. The patient denied any numbness or weakness to her extremities during this event. She also denied any visual changes, slurring of her speech, or facial drooping. She denies taking any sort of routine antiplatelet medication prior to this event. Past History Past Medical History: anemia, hypertension, other (Asthma) Past Surgical History: No surgical history Social history: no significant social history, lives with family, full code Family history: no significant family history Medications and Allergies Allergies Allergy/AdvReac Type Severity Reaction Status Date / Time lisinopril Allergy Vomiting Verified 12/30/16 15:37 Home Medications Medication Instructions Recorded Confirmed Last Taken Type ALBUTEROL Inhaler [ProAir HFA 2 puff IH QID PRN #1 can 12/30/16 Unknown Rx Inhaler] Ferrous Sulfate [Iron] 325 mg PO DAILY #30 tablet 12/30/16 Unknown Rx Metoprolol [Lopressor TAB] 100 mg PO DAILY #30 tablet 12/30/16 Unknown Rx Simvastatin [Zocor TAB] 40 mg PO QHS #30 tablet 12/30/16 Unknown Rx amLODIPine [Norvasc] 10 mg PO DAILY #30 tab 12/30/16 Unknown Rx hydrALAZINE [Apresoline TAB] 100 mg PO TID #90 tab 12/30/16 Unknown Rx Active Meds: Active Medications Acetaminophen (Tylenol) 650 mg PO Q4H PRN PRN Reason: Pain MILD(1-3)/Fever >100.5/STOUT Albuterol (Proventil) 2.5 mg IH Q4HRT PRN PRN Reason: Shortness Of Breath Bisacodyl (Dulcolax) 10 mg LA QDAY PRN PRN Reason: Constipation unrelieved by MOM Enoxaparin Sodium (Lovenox) 40 mg SUB-Q QDAY@2200 [facility] Last Admin: 12/29/16 21:45 Dose: 40 mg Famotidine (Pepcid) 20 mg PO BID [facility] Last Admin: 12/30/16 11:30 Dose: 20 mg Ferrous Sulfate (Feosol) 325 mg PO DAILY [facility] Last Admin: 12/30/16 11:30 Dose: 325 mg Hydralazine HCl (Apresoline) 10 mg IV Q3HR PRN PRN Reason: Blood Pressure Last Admin: 12/30/16 10:31 Dose: 10 mg Magnesium Hydroxide (Milk Of Magnesia) 30 ml PO Q4H PRN PRN Reason: Constipation Metoprolol Tartrate (Lopressor) 100 mg PO DAILY [facility] Last Admin: 12/30/16 11:30 Dose: 100 mg Morphine Sulfate (Morphine) 2 mg IV Q4H PRN PRN Reason: Pain, Moderate (4-6) Last Admin: 12/29/16 21:48 Dose: 2 mg Ondansetron HCl (Zofran) 4 mg IV Q8H PRN PRN Reason: N/V unrelieved by Reglan Last Admin: 12/29/16 21:45 Dose: 4 mg Oxycodone/Acetaminophen (Percocet 5/325) 1 tab PO Q6H PRN PRN Reason: Pain, Moderate (4-6) Last Admin: 12/30/16 11:29 Dose: 1 tab Triamterene/HCTZ (Maxzide-25) 2 each PO QAM [facility] Last Admin: 12/30/16 11:30 Dose: 2 each Review of Systems All systems: negative Exam - Constitutional Vitals: Temp Pulse Resp BP Pulse Ox 98.0 F 71 20 157/85 100 12/30/16 13:03 12/30/16 13:03 12/30/16 13:03 12/30/16 13:03 12/30/16 13:03 General appearance: Present: no acute distress, obese - EENT Eyes: Present: EOM intact ENT: hearing intact - Neck Neck: Present: supple - Respiratory Respiratory effort: normal - Extremities Extremities: no ischemia, pulses intact (bilateral radial and dorsalis pedis pulse were intact), No edema, normal temperature - Psychiatric Psychiatric: appropriate mood/affect, intact judgment & insight, cooperative - Neurologic Neurologic: no focal deficits Results - Labs CBC & Chem 7: 12/29/16 05:04 12/30/16 14:38 Labs: Abnormal lab results 12/29/16 12/30/16 12/30/16 Range/Units 17:40 07:55 14:38 Sodium 136 L (137-145) mmol/L Potassium 3.1 L D (3.6-5.0) mmol/L Chloride 112.6 H (98-107) mmol/L Carbon Dioxide 18 L (22-30) mmol/L BUN 19 H 21 H (7-17) mg/dL Creatinine 1.5 H (0.7-1.2) mg/dL Calcium 6.2 L D (8.4-10.2) mg/dL Total Creatine Kinase 212 H (30-135) units/L Assessment and Plan This patient presented following a syncopal episode. She was admitted, and a workup initiated. Cardiology has been consulted, and a stress test was ordered. Apparently her blood pressure medications have been adjusted. During the workup she was noted to have a right internal carotid artery stenosis (50-79% stenosis based on velocities). This appears to be asymptomatic. It does not appear to reach surgical threshold at this point. Recommend adding an antiplatelet medication, could consider adding a statin, and a routine annual carotid duplex with office follow-up to evaluate for progression of her stenosis. This was discussed with the hospitalist. Discharge planning in progress. The patient can follow up in our office as an outpatient. - Patient Problems (1) Asymptomatic carotid artery stenosis Current Visit: Yes Status: Acute Qualifiers: Laterality: L (2) Syncope Current Visit: Yes Status: Acute Qualifiers: Syncope type: S Encounter type: E (3) MEAGAN (acute kidney injury) Current Visit: Yes Status: Acute (4) Anemia Current Visit: Yes Status: Chronic Qualifiers: Anemia type: A Iron deficiency anemia type: I Vitamin B12 deficiency anemia type: V Folate deficiency anemia type: F Bone marrow failure anemia type: B Hemolytic anemia type: H Other causes of anemia: O Chronic kidney disease stage: C (5) HTN (hypertension) Current Visit: Yes Status: Chronic Qualifiers: Hypertension type: essential hypertension Qualified Code(s): I10 - Essential (primary) hypertension (6) Asthma Current Visit: Yes Status: Inactive Qualifiers: Asthma severity: A Asthma persistence: A Asthma complication type: unspecified
--- NOTE | 2016-12-31 06:49 | Treadmill Report ---
THALLIUM REPORT REASON FOR STUDY: Chest pain. IMAGING PROTOCOL: The patient received Tc-99m Tetrofosmin for stress and rest imaging. Imaging for all procedures was completed 30-90 minutes following the initial injection of Technetium 99m Tetrofosmin. SPECT imaging in the 180 degree arc was performed in the right anterior oblique projection. Computerized reconstruction of the images was performed for analysis. NUCLEAR IMAGING RESULTS: Technically limited study due to significant soft tissue attenuation artifact. Normal left ventricular cavity size with no change from stress to rest. Distribution of radionuclide within the left ventricle revealed a small to medium size area of photo-induction involving the inferior wall. The degree of photo-induction is moderate. Rest imaging showed partial improvement in this defect. Gated SPECT imaging revealed normal global LV systolic function with no significant wall motion abnormalities. The calculated left ventricular ejection fraction is 72%. IMPRESSION: Technically suboptimal study. Small to medium size, partially reversible inferior wall defect. Normal global LV systolic function with no significant wall motion abnormalities. EF 72%. These findings suggest prior infarction with mild residual ischemia in the right coronary artery territory. [facility]# [id number] MANFRED/STEVEN SANDRA
== END 2016-12-30 16:10 | disposition home or self-care (01) | DRG 312 ==
LOC: ED 09:18 → 4A 13:22
PROVIDERS: ADMIT Internal Medicine; ATTEND Internal Medicine
DX: R55 Syncope and collapse (principal); N17.9 Acute kidney failure, unspecified; G43.909 Migraine, unspecified, not intractable, without status migrainosus; J45.909 Unspecified asthma, uncomplicated; I10 Essential (primary) hypertension; I65.29 Occlusion and stenosis of unspecified carotid artery; D64.9 Anemia, unspecified; Z88.8 Allergy status to other drugs, medicaments and biological substances
CPT/HCPCS: 36415; 70450; 71010; 78452; 80048; 80053; 80307; 81001; 81025; 82550; 82553; 83880; 84484; 85025; 85379; 85610; 85730; 93017; 93306; 93880; 96374; A9502; J0360; J1650; J2270; J2405; J2785; J7042

== ENCOUNTER 2019-05-19 06:09 | Day surgery (SDC) | payer MEDICAID, OTHER ==
[~2019-05-19 06:09] MED LIST: SODIUM CHLORIDE 0.9% 1000 ML 1,000 ML IV SCH; ceFAZolin/Water 2 GM/20 ML 2 GM/20 ML SYRINGE IV NR
[2019-05-19] MEDS ORDERED: SODIUM CHLORIDE P/F VIAL 10 ML 10 ML ONE (07:12)
[2019-05-19] MEDS ORDERED: rifAMPin 600 MG VIAL ONE (07:12)
[2019-05-19] MEDS ORDERED: HEPARIN 10,000 UNITS/10 ML VIAL ONE (07:12)
[2019-05-19] MEDS ORDERED: SODIUM CHLORIDE 0.9% 500 ML 500 ML ONE (07:12)
[2019-05-19] MEDS ORDERED: BUPIVACAINE/PF (0.5%) 5 MG/1 ML 30 ML VIAL INFILTRATI ONE ×2 (07:13→09:40)
[2019-05-19] MEDS ORDERED: SODIUM CHLORIDE 0.9% 250ML 250 ML ONE (07:13)
[2019-05-19 07:20] LABS: Basophils % (Auto) 0.8 % (0.0-1.8); Eosinophils # (Auto) 0.2 K/mm3 (0.0-0.4); Eosinophils % (Auto) 4.2 % (0.0-4.3); Hematocrit 32.7 % (30.3-42.9); Hemoglobin 10.5 gm/dl (10.1-14.3); Lymphocytes # (Auto) 0.9 K/mm3 (1.2-5.4); Lymphocytes % (Auto) 15.7 % (13.4-35.0); Mean Corpuscular HGB Conc 32 % (30-34); Mean Corpuscular Volume 84 fl (79-97); Monocytes # (Auto) 0.5 K/mm3 (0.0-0.8); Monocytes % (Auto) 8.4 % (0.0-7.3); Red Blood Count 3.92 M/mm3 (3.65-5.03)
[2019-05-19] MEDS ORDERED: ONDANSETRON 4 MG/2 ML INJ IV PRN (07:28)
[2019-05-19 07:31] LABS: Calcium 8.9 mg/dL (8.4-10.2)
--- NOTE | 2019-05-19 07:33 | Anesthesia Day of Surgery ---
Anesthesia Day of Surgery - Day of Surgery Patient Examined: Yes Patient H&P Reviewed: Yes Patient is NPO: Yes Beta Blockers: Yes
--- NOTE | 2019-05-19 07:38 | Anesthesia Consultation ---
Anesthesia Consult and Med Hx - Airway Anesthetic Teeth Evaluation: Good ROM Head & Neck: Adequate Mental/Hyoid Distance: Adequate Mallampati Class: Class III Intubation Access Assessment: Probably Good - Pre-Operative Health Status ASA Pre-Surgery Classification: ASA3 Proposed Anesthetic Plan: General - Pulmonary Hx Smoking: No Hx Asthma: Yes COPD: No Hx Pneumonia: No Hx Sleep Apnea: No - Cardiovascular System Hx Hypertension: Yes (ECHO, Cardiac w/u 2016) Hx Heart Attack/AMI: No (HX CHF) Hx Heart Murmur: Yes Hx Peripheral Vascular Disease: Yes (Carotid artery stenosis) - Central Nervous System CVA: (HX-INTRACEREBRAL HEMORRHAGE OF BRAIN STEMM ??? 2017) Hx Back Pain: Yes (AND NECK PAIN) Hx Psychiatric Problems: No - Endocrine Hx Renal Disease: Yes Hx End Stage Renal Disease: Yes (DIALYSIS-TUE,THUR,SAT) Hx Hypothyroidism: No - Hematic Hx Anemia: Yes Hx Sickle Cell Disease: No - Other Systems Hx Alcohol Use: Yes (RARE MIXED DRINK) Hx Substance Use: No Hx Cancer: No
[2019-05-19] MEDS ORDERED: LIDOCAINE MPF (2%) 20 MG/1 ML VIAL 5 ML ONE (07:40)
[2019-05-19] MEDS ORDERED: propofoL 200 MG/20 ML VIAL IV ONE (07:41)
[2019-05-19 07:53] LABS: Red Cell Distribution Width 20.7 % (13.2-15.2)
[2019-05-19 08:28] LABS: Platelet Count 84 K/mm3 (140-440)
[2019-05-19] MEDS ORDERED: dexAMETHasone 20 MG/5 ML VIAL ONE (09:12)
[2019-05-19] MEDS ORDERED: ePHEDrine SULFATE 50 MG/1 ML INJ ONE (09:30)
[2019-05-19] MEDS ORDERED: HEPARIN 10,000 UNITS/10 ML VIAL IV ONE (09:37)
[2019-05-19] MEDS ORDERED: SODIUM CHLORIDE 0.9% 500 ML IVPB IRRIGATION ONE (09:38)
[2019-05-19] MEDS ORDERED: SODIUM CHLORIDE 0.9% 250 ML IVPB IV ONE (09:39)
[2019-05-19] MEDS ORDERED: SODIUM CHLORIDE 0.9% P/F 10 ML VIAL INFILTRATI ONE (09:39)
[2019-05-19] MEDS ORDERED: rifAMPin 600 MG VIAL IV ONE (09:40)
[2019-05-19] MEDS ORDERED: SODIUM CHLORIDE 0.9% IRR 1,500 ML BOTTLE IR ONE (09:41)
[2019-05-19] MEDS: fentaNYL 100 MCG/2 ML INJ IV PRN ×2 (11:10→11:20)
--- NOTE | 2019-05-19 11:14 | Short Stay Summary ---
Short Stay Documentation Date of service: 05/19/19 Narrative H&P: See H&P - History H&P: obtained from office - Allergies and Medications Current Medications: Allergies lisinopril Allergy (Verified 12/30/16 15:37) Vomiting Home Medications Medication Instructions Recorded Confirmed Last Taken Type Albuterol INH(or & Nicu Only) 2 puff IH QID PRN #1 can 12/30/16 05/19/19 03/20/19 Rx [ProAir HFA Inhaler] Ferrous Sulfate [Iron 325 MG] 325 mg PO DAILY #30 tablet 12/30/16 05/19/19 05/18/19 Rx Simvastatin [Zocor TAB] 40 mg PO QHS #30 tablet 12/30/16 05/19/19 05/18/19 Rx hydrALAZINE [Apresoline TAB] 100 mg PO TID #90 tab 12/30/16 05/19/19 05/19/19 05:30 Rx Docusate Sodium-Senna Tablet 10 gm PO TID 05/15/19 05/19/19 05/18/19 History Metoprolol [Lopressor TAB] 100 mg PO BID 05/15/19 05/19/19 05/19/19 05:30 History NIFEdipine 90 mg PO DAILY 05/15/19 05/15/19 05/19/19 05:30 History Torsemide 100 mg PO DAILY 05/15/19 05/15/19 05/19/19 05:30 History Vitamin D2 1 cap PO DAILY 05/15/19 05/19/19 05/18/19 History cloNIDine 0.2 mg PO TID 05/15/19 05/15/19 05/19/19 05:30 History PANTOPRAZOLE SODIUM (nf) [Protonix 40 mg PO QDAY 05/19/19 05/19/19 05/19/19 05:30 History GRANULES] Sodium Bicarbonate 10 mg PO TID 05/19/19 05/19/19 05/18/19 History Active Medications Fentanyl (Sublimaze) 50 mcg IV Q5MIN PRN PRN Reason: Pain , Severe (7-10) Stop: 05/19/19 20:00 Cefazolin Sodium (Ancef/Sterile Water 2 Gm/20 Ml) 2 gm in 20 mls @ 80 mls/hr IV PREOP NR; Protocol Stop: 05/19/19 23:01 Sodium Chloride (Nacl 0.9% 1000 Ml) 1,000 mls @ 42 mls/hr IV DIRECT SIERRA Last Admin: 05/19/19 06:50 Dose: 42 mls/hr Documented by: Ondansetron HCl (Zofran) 4 mg IV ONCE PRN PRN Reason: Nausea And Vomiting Stop: 05/19/19 16:00 - Brief post op/procedure progress note Date of procedure: 05/19/19 Pre-op diagnosis: End Stage Renal Disease Post-op diagnosis: same Procedure: Creation Of Left Brachial Artery to Left Axillary Vein Arteriovenous Graft with 6 mm Bovine Artegraft Anesthesia: GETDesi Surgeon: VINH KELLOGG Estimated blood loss: minimal Pathology: none Condition: stable - Disposition Condition at discharge: Good Disposition: DC-01 TO HOME OR SELFCARE Short Stay Discharge Plan Activity: other (No heavy lifting with left arm.) Wound: open to air, keep clean and dry, other (Okay to wash the wound with soap and water but do not soak in water.) Follow up with: VINH KELLOGG MD [Staff Physician] - 14 Days Prescriptions: HYDROcodone/APAP 7.5-325 [[place] 7.5/325] 1 each PO Q6HR PRN #40 tablet PRN Reason: Pain
--- NOTE | 2019-05-19 11:17 | Operative Report ---
Operative Report Operative Report: Date of procedure: 05/19/2019 Pre-operative diagnosis: End-Stage Renal Disease Post-operative diagnosis: Same Procedure(s): 1. Creation of Left Brachial Artery to Axillary Vein AV Graft with 6 mm Bovine Graft Surgeon: Hardik Price MD Skate Shop Attendant: None Anesthesia: General Endotracheal Anesthesia EBL: Minimal Counts: Correct Complications: None Condition: Stable Findings: Successful Creation of Left Arm AV Graft Specimen: None Indication: The patient is a 43-year-old female with a history of end-stage renal disease who is on hemodialysis through a right internal jugular permacath. She is in need of long-term dialysis access however her veins are too small for creation of an arteriovenous fistula so she is in need of creation of an arteriovenous graft. She was given the risk, benefits, and alternative procedures and consented to the procedure. Description of Procedure: The patient was brought to the operating room and laid in supine position after general endotracheal anesthesia was achieved the left arm was prepped and draped in normal sterile fashion. A longitudinal incision was made on the medial aspect of the arm just proximal to the antecubital crease and carried down to the brachial artery using sharp dissection. The brachial artery was dissected out circumferentially both proximally and distally and controlled with vessel loops. A second incision was created in longitudinal fashion on the medial aspect of the arm just distal to the axillary crease and carried down to the axillary vein using sharp dissection. Axillary vein was dissected out circumferentially and controlled with a vessel loop. I then used a Marlyn-Wick tunneler to tunnel from the brachial artery incision to the axillary vein incision and then put an 6 mm bovine through the tunnel. I infused with heparinized saline to ensure that it was not twisted or kinked. I put the brachial artery vessel loops on tension controlling the flow and then created an arteriotomy using an 11 blade and Sinclair scissors. I beveled the graft and created an end-to-side anastomosis using 6-0 Prolene running fashion. I clamped the graft just proximal to the anastomosis and then released the vessel loops restoring flow in the brachial artery. I placed quick clot in incision to achieve hemostasis. I cut the proximal end of the graft to the appropriate length and beveled the graft in preparation for a venous anastomosis. I controlled the axillary vein a Satinsky clamp and created a venotomy using an 11 blade and Sinclair scissors. I created an end to side anastomosis using a 6-0 Prolene in running fashion. Prior to completing the anastomosis I flushed the graft to ensure there was no thrombus and then completed the anastamosis. I released all clamps allowing flow into the AV graft which had an excellent thrill. I packed the wound with quick clot to achieve hemostasis. I anesthetized both wounds with 0.5% Marcaine and then closed both wounds in 2 layers using 3-0 Vicryl in running fashion in the deep dermal layer and 4-0 Monocryl in running fashion the subcuticular layer. I dressed both wounds with Dermabond. The patient tolerated the procedure well all sponge needle and instrument counts were correct the patient was taken to recovery in stable condition.
[2019-05-19] MEDS ORDERED: HYDROcodone/ACETAMINOPHEN 7.5-325MG TAB PO PRN (11:40)
[2019-05-19] MEDS ORDERED: HYDROcodone/ACETAMINOPHEN 7.5-325MG TAB ONE (11:45)
[2019-05-19 11:54] VITALS: BP 148/81
--- NOTE | 2019-05-19 14:37 | Post Anesthesia Evaluation ---
- Post Anesthesia Evaluation Patient Participated: Yes Airway Patent: Yes Stable Respiratory Function: Yes Nausea/Vomiting: No Temp > 96.8F: Yes Pain Manageable: Yes Adequeate Hydration: Yes Anesthesia Complications: No
== END 2019-05-19 06:10 | disposition home or self-care (01) ==
LOC: OR 06:09
PROVIDERS: ATTEND Surgery Vascular Surgery
DX: I13.2 Hypertensive heart and chronic kidney disease with heart failure and with stage 5 chronic kidney disease, or end stage renal disease (principal); N18.6 End stage renal disease; I50.9 Heart failure, unspecified; J45.909 Unspecified asthma, uncomplicated; D64.9 Anemia, unspecified; I73.9 Peripheral vascular disease, unspecified; E78.00 Pure hypercholesterolemia, unspecified; K21.9 Gastro-esophageal reflux disease without esophagitis; M19.90 Unspecified osteoarthritis, unspecified site; Z72.89 Other problems related to lifestyle; Z79.899 Other long term (current) drug therapy; Z99.2 Dependence on renal dialysis; Z98.890 Other specified postprocedural states; Z86.2 Personal history of diseases of the blood and blood-forming organs and certain disorders involving the immune mechanism; Z88.8 Allergy status to other drugs, medicaments and biological substances; Z86.73 Personal history of transient ischemic attack (TIA), and cerebral infarction without residual deficits
CPT/HCPCS: 36415; 36830; 80048; 81025; 85025; C1768; J0690; J1100; J1644; J2405; J2704; J3010; J3490; J7030; J7040; J7050

== ENCOUNTER 2021-03-27 14:27 | Outpatient (CLI) | payer MEDICARE ==
--- NOTE | 2021-03-27 17:57 | Mammography Report ---
DIGITAL SCREENING MAMMOGRAM WITH CAD, 03/27/2021 CLINICAL INFORMATION / INDICATION: Routine screening TECHNIQUE: Digital bilateral 2D mammography was obtained in the craniocaudal and mediolateral obliqu e projections. This examination was interpreted with the benefit of Computer-Aided Detection analysis . COMPARISON: None, baseline FINDINGS: Breast Density: The breasts are almost entirely fatty. No dominant mass, suspicious calcifications, or architectural distortion in either breast. Benign-appearing bilateral calcifications are seen. IMPRESSION: No mammographic evidence of malignancy. Follow up recommendation: Routine yearly BI-RADS Category 2: BENIGN. A "normal" or negative report should not discourage follow up or biopsy of a clinically significant f inding. A written summary of these findings will be mailed to the patient. The patient will be entered into a mammography reporting system which will generate a reminder letter for the patient's next appointmen t at the appropriate interval. The [employer] recommends yearly mammograms starting at age 40 and continuing as l bailey as a woman is in good health. Breast MRI is recommended for women with an approximate 20-25% or greater lifetime risk of breast cancer, including women with a strong family history of breast or ova devang cancer or who have been treated for Hodgkin's disease. Signer Name: Robert Cruz MD Signed: 03/27/2021 5:53 PM Workstation Name: [email or web address]
== END 2021-03-27 14:28 | disposition home or self-care (01) ==
LOC: MAMMO 14:27
PROVIDERS: ATTEND Internal Medicine Nephrology
DX: Z12.31 Encounter for screening mammogram for malignant neoplasm of breast (principal); N64.89 Other specified disorders of breast
CPT/HCPCS: 77067

== ENCOUNTER 2021-08-24 13:49 | Emergency (ER) | payer MEDICARE ==
[2021-08-25 09:21] LABS: Hemoglobin 11.5 gm/dl (10.1-14.3); Mean Corpuscular HGB Conc 32 % (30-34); Mean Corpuscular Volume 94 fl (79-97); Platelet Count 106 K/mm3 (140-440); Red Blood Count 3.85 M/mm3 (3.65-5.03); Red Cell Distribution Width 17.7 % (13.2-15.2)
[2021-08-25 09:43] LABS: Albumin 4.4 g/dL (3.9-5); Calcium 10.1 mg/dL (8.4-10.2)
[2021-08-25] MEDS ORDERED: ONDANSETRON 4 MG/2 ML INJ IM ONE (10:07)
[2021-08-25] MEDS ORDERED: CYCLOBENZAPRINE 10 MG TAB PO ONE (10:07)
[2021-08-25] MEDS ORDERED: fentaNYL 100 MCG/2 ML INJ IM ONE (10:07)
--- NOTE | 2021-08-25 10:15 | Emergency Department Report ---
HPI - General Chief Complaint: Pain General Time Seen by Provider: 08/25/21 09:58 - HPI HPI: Room 6 The patient is a 46-year-old female present with a chief complaint of soreness. The patient states for the past 5 days she has had soreness in bilateral upper extremities and her neck in addition to bilateral thighs and low back pain. Patient states she has had this pain in the past has been attributed to arthritis in her neck and back. Patient states she also has longstanding disc issues in her lower back. ED Past Medical Hx - Past Medical History Previous Medical History?: Yes Hx Hypertension: Yes (ECHO, Cardiac w/u 2016) Hx Heart Attack/AMI: No (HX CHF) Hx Congestive Heart Failure: Yes Hx GERD: Yes Hx Renal Disease: Yes Hx Arthritis: Yes (NECK) Hx Headaches / Migraines: Yes Hx Asthma: Yes Additional medical history: Anemia (FE) - Surgical History Past Surgical History?: Yes Additional Surgical History: Left AV graft - Family History Family history: no significant - Social History Smoking Status: Never Smoker Substance Use Type: None (Denies illicit drug use) - Medications Home Medications: Home Medications Medication Instructions Recorded Confirmed Last Taken Type Albuterol Mdi (or & Nicu Only) 2 puff IH QID PRN #1 can 12/30/16 05/19/19 03/20/19 Rx [ProAir HFA Inhaler] Ferrous Sulfate [Iron 325 MG] 325 mg PO DAILY #30 tablet 12/30/16 05/19/19 05/18/19 Rx Simvastatin (NF) [Zocor TAB] 40 mg PO QHS #30 tablet 12/30/16 05/19/19 05/18/19 Rx hydrALAZINE [Apresoline TAB] 100 mg PO TID #90 tab 12/30/16 05/19/19 05/19/19 05:30 Rx Docusate Sodium-Senna Tablet 10 gm PO TID 05/15/19 05/19/19 05/18/19 History Metoprolol [Lopressor TAB] 100 mg PO BID 05/15/19 05/19/19 05/19/19 05:30 History NIFEdipine 90 mg PO DAILY 05/15/19 05/15/19 05/19/19 05:30 History Torsemide 100 mg PO DAILY 05/15/19 05/15/19 05/19/19 05:30 History Vitamin D2 1 cap PO DAILY 05/15/19 05/19/19 05/18/19 History cloNIDine 0.2 mg PO TID 05/15/19 05/15/19 05/19/19 05:30 History HYDROcodone/APAP 7.5-325 [Edwards 1 each PO Q6HR PRN #40 tablet 05/19/19 Unknown Rx 7.5/325] PANTOPRAZOLE SODIUM (nf) [Protonix 40 mg PO QDAY 05/19/19 05/19/19 05/19/19 05:30 History GRANULES] Sodium Bicarbonate 10 mg PO TID 05/19/19 05/19/19 05/18/19 History Cyclobenzaprine [Flexeril] 10 mg PO TID PRN #10 08/25/21 Unknown Rx HYDROcodone/APAP 5-325 [Edwards 1 - 2 each PO Q6HR PRN #10 tablet 08/25/21 Unknown Rx 5/325] Ibuprofen [Motrin 800 MG tab] 800 mg PO Q8HR PRN #20 tablet 08/25/21 Unknown Rx ED Review of Systems ROS: Stated complaint: LOW BACK PAIN/SORNESS/CP Other details as noted in HPI Constitutional: no symptoms reported Eyes: denies: eye pain ENT: denies: throat pain Respiratory: no symptoms reported Cardiovascular: denies: chest pain Endocrine: no symptoms reported Gastrointestinal: denies: abdominal pain Musculoskeletal: back pain, arthralgia, myalgia Neurological: denies: headache Physical Exam - Physical Exam Vital Signs: Vital Signs 08/24/21 16:11 Temperature 99.1 F Pulse Rate 89 Respiratory 20 Rate Blood Pressure 135/87 [Right] O2 Sat by Pulse 99 Oximetry Physical Exam: GENERAL: The patient is well-developed well-nourished female sitting in chair not appearing to be in acute distress. [] HEENT: Normocephalic. Atraumatic. Extraocular motions are intact. Patient has moist mucous membranes. NECK: Supple. No axial step-off CHEST/LUNGS: Clear to auscultation. There is no respiratory distress noted. HEART/CARDIOVASCULAR: Regular. There is no tachycardia. There is no gallop rub or murmur. ABDOMEN: Abdomen is soft, nontender. Patient has normal bowel sounds. There is no abdominal distention. SKIN: There is no rash. There is no edema. There is no diaphoresis. NEURO: The patient is awake, alert, and oriented. The patient is cooperative. The patient has no focal neurologic deficits. The patient has normal speech. GCS 15 MUSCULOSKELETAL: There is tenderness to the lumbar spine but there is no axial step-off. There is no evidence of acute injury. ED Course Vital Signs 08/24/21 16:11 Temperature 99.1 F Pulse Rate 89 Respiratory 20 Rate Blood Pressure 135/87 [Right] O2 Sat by Pulse 99 Oximetry ED Medical Decision Making - Lab Data Result diagrams: 08/25/21 08:32 08/25/21 08:32 Laboratory Tests 08/25/21 08/25/21 08:32 08:32 WBC 3.3 L RBC 3.85 Hgb 11.5 Hct 36.0 MCV 94 MCH 30 MCHC 32 RDW 17.7 H Plt Count 106 L Sodium 139 Potassium 4.0 Chloride 92.7 L Carbon Dioxide 27 Anion Gap 23 BUN 51 H Creatinine 14.6 H Estimated GFR 3 BUN/Creatinine Ratio 3 Glucose 115 H Calcium 10.1 Phosphorus 7.20 H Magnesium 2.10 Total Bilirubin 0.40 AST 19 ALT 27 Alkaline Phosphatase 128 NT-Pro-B Natriuret Pep 4424 H Total Protein 8.1 Albumin 4.4 Albumin/Globulin Ratio 1.2 - EKG Data -: EKG Interpreted by Me EKG shows normal: sinus rhythm Rate: normal - EKG Data When compared to previous EKG there are: previous EKG unavailable Interpretation: nonspecific ST-T wave ginette (T wave version lead III) - Radiology Data Radiology results: report reviewed (Cervical spine x-ray, lumbar spine x-ray), image reviewed (Cervical spine x-ray, lumbar spine x-ray) interpreted by me: Cervical spine x-ray-no acute fracture Lumbar spine x-ray-no acute fracture [facility] [address] [place] [address] XRay Report Signed Patient: SHIKHA MOREIRA MR#: [id number] : 1975 Acct:[id number] Age/Sex: 46 / F ADM Date: 08/24/21 Loc: ED Attending Dr: Ordering Physician: DANGELO GRAYSON MD Date of Service: 08/25/21 Procedure(s): XR spine lumbosacral 2-3V Accession Number(s): [id number] cc: DANGELO GRAYSON MD Fluoro Time In Minutes: XR spine lumbosacral 2-3V INDICATION / CLINICAL INFORMATION: Pain. COMPARISON: None available. FINDINGS: BONES/JOINT(S): No acute fracture or subluxation. Mild generalized spondylosis. No focal bone erosions or focal osteopenia to suggest inflammatory arthropathy. SOFT TISSUES: No significant abnormality. ADDITIONAL FINDINGS: None. Signer Name: Ap Pelayo MD Signed: 08/25/2021 11:16 AM Workstation Name: [id number] Transcribed By: MARTIN Dictated By: Ap Pelayo MD Electronically Authenticated By: Ap Pelayo MD Signed Date/Time: 08/25/211115 DD/ 14 TD/TT: [address] [address] XRay Report Signed Patient: SHIKHA MOREIRA MR#: [id number] : 1975 Acct:[id number] Age/Sex: 46 / F ADM Date: 08/24/21 Loc: ED Attending Dr: Ordering Physician: DANGELO GRAYSON MD Date of Service: 08/25/21 Procedure(s): XR spine cervical 2-3V Accession Number(s): [id number] cc: DANGELO GRAYSON MD Fluoro Time In Minutes: CERVICAL SPINE 3 VIEWS INDICATION / CLINICAL INFORMATION: Pain. COMPARISON: None available. FINDINGS: BONES / JOINT(S): No acute fracture or subluxation. Mild generalized spondylosis with small anterior and lateral osteophytes. SOFT TISSUES: No significant abnormality. ADDITIONAL FINDINGS: None. IMPRESSION: 1. No acute findings. Signer Name: Ap Pelayo MD Signed: 08/25/2021 11:18 AM Workstation Name: [id number] Transcribed By: MARTIN Dictated By: Ap Pelayo MD Electronically Authenticated By: Ap Pelayo MD Signed Date/Time: 08/25/218 DD/ 15 TD/TT: - Differential Diagnosis Myalgias, arthritis, cervical radiculopathy, lumbar radiculopathy Critical care attestation.: If time is entered above; I have spent that time in minutes in the direct care of this critically ill patient, excluding procedure time. ED Disposition Clinical Impression: Neck pain, Lumbar pain Disposition: HOME / SELF CARE / HOMELESS Is pt being admited?: No Does the pt Need Aspirin: No Condition: Stable Instructions: What You Need to Know About Chronic Back Pain Additional Instructions: Return to the emergency department should you develop worsening symptoms, inability to tolerate food or liquids, high fever or any other concerns Prescriptions: Cyclobenzaprine [Flexeril] 10 mg PO TID PRN #10 PRN Reason: Muscle Spasm Ibuprofen [Motrin 800 MG tab] 800 mg PO Q8HR PRN #20 tablet PRN Reason: Pain, Moderate (4-6) HYDROcodone/APAP 5-325 [Edwards 5/325] 1 - 2 each PO Q6HR PRN #10 tablet PRN Reason: Pain Referrals: ITALO THOMSON MD [Primary Care Provider] - 3-5 Days BRANDEN SEPULVEDA II, MD [Staff Physician] - 3-5 Days (Dr. Sepulveda is a neurosurgeon/content management specialist. Please follow-up with him for further evaluation) Time of Disposition: 13:13
--- NOTE | 2021-08-25 11:20 | XRay Report ---
XR spine lumbosacral 2-3V INDICATION / CLINICAL INFORMATION: Pain. COMPARISON: None available. FINDINGS: BONES/JOINT(S): No acute fracture or subluxation. Mild generalized spondylosis. No focal bone erosion s or focal osteopenia to suggest inflammatory arthropathy. SOFT TISSUES: No significant abnormality. ADDITIONAL FINDINGS: None. Signer Name: Ap Pelayo MD Signed: 08/25/2021 11:16 AM Workstation Name: [id number]
--- NOTE | 2021-08-25 11:22 | XRay Report ---
CERVICAL SPINE 3 VIEWS INDICATION / CLINICAL INFORMATION: Pain. COMPARISON: None available. FINDINGS: BONES / JOINT(S): No acute fracture or subluxation. Mild generalized spondylosis with small anterior and lateral osteophytes. SOFT TISSUES: No significant abnormality. ADDITIONAL FINDINGS: None. IMPRESSION: 1. No acute findings. Signer Name: Ap Pelayo MD Signed: 08/25/2021 11:18 AM Workstation Name: [id number]
[2021-08-25 13:26] VITALS: BP 148/86
--- NOTE | 2021-08-28 18:44 | Electrocardiograph Report ---
[facility] Test Date: 2021-08-25 Test Time: 13:05:57 Pat Name: SHIKHA KABALAND Department: Room: Gender: F [employer]: TAD : 1975 Requested By: SYED ELIZABETH Order Number: [id number] Reading MD: Damian Ledezma Measurements Intervals [place] Rate: 61 P: 58 SC: 135 QRS: -18 QRSD: 87 T: -3 QT: 421 QTc: 425 Interpretive Statements Sinus rhythm Probable left atrial enlargement Possible anterior infarct, old No previous ECG available for comparison Electronically Signed On 08-28-2021 18:43:57 EDT by Damian Ledezma
== END 2021-08-25 13:26 | disposition home or self-care (01) ==
LOC: ED 13:49
DX: M54.2 Cervicalgia (principal); M54.50 Low back pain, unspecified; I13.0 Hypertensive heart and chronic kidney disease with heart failure and stage 1 through stage 4 chronic kidney disease, or unspecified chronic kidney disease; N18.9 Chronic kidney disease, unspecified; I50.9 Heart failure, unspecified; K21.9 Gastro-esophageal reflux disease without esophagitis; M19.90 Unspecified osteoarthritis, unspecified site; G43.909 Migraine, unspecified, not intractable, without status migrainosus; J45.909 Unspecified asthma, uncomplicated; D64.9 Anemia, unspecified; Z98.890 Other specified postprocedural states
CPT/HCPCS: 36415; 72040; 72100; 80053; 83735; 83880; 84100; 85027; 93005; 96372; 99284; J2405; J3010